=== PATIENT | male | born 1955 | race Caucasian/White ===

== ENCOUNTER 2018-06-05 11:48 | Emergency (ER) | payer MEDICAID ==
[~2018-06-05] VITALS: Ht 167.6 cm; Wt 96.8 kg
[~2018-06-05 11:48] MED LIST: ALBU8.5H8 IH; AMLO-511 PO; ASPI81 PO; ATOR20TA86 PO; BECL8.7A5 IH; HYDR25TA PO; IPRA4AER IH; IPRAHFA IH; LEDI1TAB PO; OMEP20 PO; SIME80 PO
[2018-06-05] MEDS ORDERED: FURO20 PO (11:57)
[2018-06-05] MEDS ORDERED: ROFL500T PO (11:57)
[2018-06-05] MEDS ORDERED: TIOT185 IH (11:57)
[2018-06-05] MEDS ORDERED: DSS100 PO (11:57)
[2018-06-05] MEDS ORDERED: LOSA50TA37 PO (11:57)
[2018-06-05 12:28] VITALS: BP 135/75
[2018-06-05] MEDS ORDERED: ACETAMINOPHEN/CODEINE 300-30 MG TABLET PO ONE (12:30)
== END 2018-06-05 14:28 | disposition home or self-care (01) ==
LOC: EMS 11:48
DX: M25.461 Effusion, right knee (principal); M25.561 Pain in right knee; J45.909 Unspecified asthma, uncomplicated; I10 Essential (primary) hypertension; Z87.891 Personal history of nicotine dependence
CPT/HCPCS: 99284

== ENCOUNTER 2018-12-28 11:23 | Emergency (ER) | payer MEDICAID ==
[~2018-12-28] VITALS: Ht 172.7 cm; Wt 98.2 kg
[~2018-12-28 11:23] MED LIST changes: -BECL8.7A5 IH; +DSS100 PO; +FURO20 PO; -HYDR25TA PO; -IPRA4AER IH; -IPRAHFA IH; -LEDI1TAB PO; +LOSA50TA64 PO; +ROFL500T PO; +TIOT185 IH
[2018-12-28] MEDS ORDERED: ROFL500T PO (11:34)
[2018-12-28 13:00] VITALS: BP 137/80
== END 2018-12-28 13:31 | disposition home or self-care (01) ==
LOC: EMS 11:26
DX: R05 Cough (principal); R09.81 Nasal congestion; R09.3 Abnormal sputum; J44.9 Chronic obstructive pulmonary disease, unspecified; I10 Essential (primary) hypertension; Z87.891 Personal history of nicotine dependence; Z79.899 Other long term (current) drug therapy; Z79.82 Long term (current) use of aspirin

== ENCOUNTER 2019-09-08 19:51 | Inpatient (IN) | payer MEDICAID ==
[~2019-09-08] VITALS: Ht 167.6 cm; Wt 97.0 kg
[~2019-09-08 19:51] MED LIST changes: -AMLO-511 PO; +AMLO5TAB9 PO
[2019-09-08] MEDS ORDERED: BUDE10.2 IH (20:11)
[2019-09-08] MEDS ORDERED: IPRATROPIUM BROMIDE 0.5 MG/2.5 ML NEB SOLUTION NEB ONE (20:15)
[2019-09-08] MEDS ORDERED: ALBUTEROL SULFATE 5 MG/ML 20 ML NEB SOLN [BULK] NEB ONE (20:15)
[2019-09-08] MEDS ORDERED: AZITHROMYCIN 500 MG/NS 250 ML IV ONE (20:45)
[2019-09-08] MEDS ORDERED: MethylPREDNISolone SOD SUCC 125 MG/2 ML VIAL IVP ONE (20:45)
[2019-09-08 21:32] LABS: BASOPHILS % (AUTO) 0.4 % (0.0-2.0); EOSINOPHILS % (AUTO) 7.5 % (1.0-6.0); HEMOGLOBIN 13.4 g/dL (13.5-17.5); LYMPHOCYTES # (AUTO) 2.4 K/uL (1.0-4.8); MEAN CORPUSCULAR VOLUME 88 fL (80-100); MONOCYTES % (AUTO) 11.8 % (2.0-9.0); NEUTROPHILS # (AUTO) 4.5 K/uL (1.8-7.7); NEUTROPHILS % (AUTO) 52.3 % (40.0-70.0); PLATELET COUNT (AUTO) 318 K/uL (150-450); RED CELL DISTRIBUTION WIDTH 14.7 % (11.5-14.5)
[2019-09-08 21:53] LABS: INFLUENZA TYPE A NEGATIVE FOR TYPE A (NEGATIVE); INFLUENZA TYPE B NEGATIVE FOR TYPE B (NEGATIVE)
[2019-09-08 22:06] LABS: ALANINE AMINOTRANSFERASE 39 U/L (12-78); ALBUMIN 3.8 g/dL (3.4-5.0); ALKALINE PHOSPHATASE 90 U/L (46-116); ASPARTATE AMINOTRANSFERASE 20 U/L (15-37); BILIRUBIN,TOTAL 0.5 mg/dL (0.1-1.0); CARBON DIOXIDE 32 mmol/L (22-29); CREATININE 0.96 mg/dL (0.60-1.30); GLOMERULAR FILTR. RATE CALC > 60 mL/min (>60); GLUCOSE,RANDOM 106 mg/dL (70-110); LIPASE 69 U/L (73-393); TOTAL PROTEIN, SERUM 7.7 g/dL (6.4-8.2); UREA NITROGEN, BLOOD 14 mg/dL (7-18)
[2019-09-08 22:11] LABS: ANION GAP 5 mmol/L (8-16); CHLORIDE 104 mmol/L (98-107); POTASSIUM 4.2 mmol/L (3.5-5.1); SODIUM SERUM 141 mmol/L (136-145)
[2019-09-08 22:20] LABS: LACTIC ACID 1.3 mmol/L (0.4-2.0)
[2019-09-08 22:22] LABS: B-TYPE NATRIURETIC PEPTIDE < 5 pg/mL (0-100)
[2019-09-08] MEDS ORDERED: ONDANSETRON HCL 4 MG/2 ML VIAL IVP PRN ×2 (22:45→23:45)
[2019-09-08] MEDS ORDERED: 0.9% SODIUM CHLORIDE 10 ML SYRINGE IVP PRN (22:45)
[2019-09-08] MEDS ORDERED: ACETAMINOPHEN 325 MG TABLET PO PRN ×2 (22:45→23:45)
[2019-09-08] MEDS ORDERED: IPRATROPIUM BROMIDE 0.5 MG/2.5 ML NEB SOLUTION NEB SCH (23:00)
[2019-09-08] MEDS ORDERED: ALBUTEROL SULFATE 2.5 MG/0.5 ML NEB SOLUTION NEB SCH (23:00)
[2019-09-08] MEDS ORDERED: IPRATROPIUM BROMIDE 0.5 MG/2.5 ML NEB SOLUTION NEB PRN (23:45)
[2019-09-08] MEDS ORDERED: ALBUTEROL SULFATE 2.5 MG/0.5 ML NEB SOLUTION NEB PRN (23:45)
[2019-09-08] MEDS ORDERED: OxyCODONE HCL/ACETAMINOPHEN 5-325 MG TABLET PO PRN (23:45)
[2019-09-08] MEDS ORDERED: BISACODYL 10 MG RECTAL RECTAL SUPPOSITORY PR PRN (23:45)
[2019-09-08] MEDS ORDERED: MAGNESIUM HYDROXIDE SUSPENSION 30 ML UDCUP PO PRN (23:45)
[2019-09-08] MEDS ORDERED: ZOLPIDEM TARTRATE 5 MG TABLET PO PRN (23:45)
[2019-09-08] MEDS ORDERED: MORPHINE SULFATE 2 MG/ML SYRINGE IVP PRN (23:45)
[2019-09-09 00:36] VITALS: BP 123/68
[2019-09-09] MEDS: MethylPREDNISolone SOD SUCC 125 MG/2 ML VIAL IVP SCH ×4 (00:43→17:00)
[2019-09-09] MEDS: HEPARIN SODIUM,PORCINE 5,000 UNITS/ML VIAL SQ SCH ×3 (00:43→16:58)
[2019-09-09] MEDS: IPRATROPIUM BROMIDE 0.5 MG/2.5 ML NEB SOLUTION NEB SCH ×6 (03:28→23:02)
[2019-09-09] MEDS: ALBUTEROL SULFATE 2.5 MG/0.5 ML NEB SOLUTION NEB SCH ×6 (03:28→23:02)
[2019-09-09 04:14] VITALS: BP 122/79
[2019-09-09 06:41] LABS: BASOPHILS % (AUTO) 0.1 % (0.0-2.0); EOSINOPHILS % (AUTO) 0 % (1.0-6.0); HEMATOCRIT 40.2 % (41-53); LYMPHOCYTES # (AUTO) 0.6 K/uL (1.0-4.8); LYMPHOCYTES % (AUTO) 7.5 % (22.0-44.0); MEAN CORPUSCULAR HGB CONC 32.2 G/dL (31.0-37.0); MEAN CORPUSCULAR VOLUME 87 fL (80-100); MONOCYTES # (AUTO) 0.1 K/uL (0.1-1.0); MONOCYTES % (AUTO) 0.7 % (2.0-9.0); NEUTROPHILS # (AUTO) 6.8 K/uL (1.8-7.7); PLATELET COUNT (AUTO) 293 K/uL (150-450); RED BLOOD CELL COUNT(AUTO) 4.63 MIL/uL (4.50-5.90); RED CELL DISTRIBUTION WIDTH 14.6 % (11.5-14.5)
[2019-09-09 06:48] LABS: NEUTROPHILS % (AUTO) 91.7 % (40.0-70.0)
[2019-09-09 06:58] LABS: ALANINE AMINOTRANSFERASE 30 U/L (12-78); ALKALINE PHOSPHATASE 79 U/L (46-116); ANION GAP 8 mmol/L (8-16); ASPARTATE AMINOTRANSFERASE 14 U/L (15-37); BILIRUBIN,TOTAL 0.4 mg/dL (0.1-1.0); CARBON DIOXIDE 29 mmol/L (22-29); CHLORIDE 105 mmol/L (98-107); CREATININE 1.12 mg/dL (0.60-1.30); GLOMERULAR FILTR. RATE CALC > 60 mL/min (>60); GLUCOSE,RANDOM 203 mg/dL (70-110); POTASSIUM 4.4 mmol/L (3.5-5.1); SODIUM SERUM 142 mmol/L (136-145); UREA NITROGEN, BLOOD 14 mg/dL (7-18)
[2019-09-09 06:59] LABS: ALBUMIN 3.6 g/dL (3.4-5.0); TOTAL PROTEIN, SERUM 7.4 g/dL (6.4-8.2)
[2019-09-09 07:28] VITALS: BP 131/78
[2019-09-09] MEDS: LOSARTAN POTASSIUM 50 MG TABLET PO SCH (08:38)
[2019-09-09] MEDS: OMEPRAZOLE 20 MG CAPSULE PO SCH (08:38)
[2019-09-09] MEDS: AmLODIPine BESYLATE 5 MG TABLET PO SCH (08:38)
[2019-09-09] MEDS: FUROSEMIDE 20 MG/2 ML VIAL IVP SCH ×2 (08:38→21:29)
[2019-09-09] MEDS: ASPIRIN 81 MG CHEWABLE TABLET PO SCH (08:38)
[2019-09-09] MEDS: DOCUSATE SODIUM 100 MG CAPSULE PO SCH ×2 (08:39→21:30)
[2019-09-09] MEDS ORDERED: PANTOPRAZOLE SODIUM 40 MG DR TABLET PO SCH (09:00)
[2019-09-09] MEDS ORDERED: DOCUSATE SODIUM 100 MG CAPSULE PO SCH (09:00)
[2019-09-09 11:23] VITALS: BP 117/65
[2019-09-09 12:27] LABS: APPEARANCE,URINE CLOUDY (CLEAR); BILIRUBIN,URINE NEGATIVE (NEGATIVE); GLUCOSE, URINE (UA) 100 mg/dL (NEGATIVE); KETONES,URINE NEGATIVE (NEGATIVE); LEUKOCYTE ESTERASE ,URINE NEGATIVE (NEGATIVE); NITRATE,URINE NEGATIVE (NEGATIVE); OCCULT BLOOD,URINE NEGATIVE (NEGATIVE); PROTEIN,URINE NEGATIVE (NEGATIVE); UROBILINOGEN,URINE 0.2 mg/dL (<=1.0)
[2019-09-09 12:41] LABS: BACTERIA,URINE None Seen /HPF (None Seen); MUCUS,URINE Few LPF (None Seen); RBC,URINE None Seen /HPF (0-2); SQUAMOUS EPITHELIAL CELL,UR Few /LPF (None Seen); WBC,URINE 0-2 /HPF (0-5)
[2019-09-09 15:21] VITALS: BP 102/61
[2019-09-09 20:27] VITALS: BP 126/66
[2019-09-09] MEDS: ATORVASTATIN CALCIUM 20 MG TABLET PO SCH (21:30)
[2019-09-10] VITALS (7 sets, daily range): BP systolic 100–127; BP diastolic 62–74
[2019-09-10] MEDS: MethylPREDNISolone SOD SUCC 125 MG/2 ML VIAL IVP SCH ×4 (00:50→18:25)
[2019-09-10] MEDS: HEPARIN SODIUM,PORCINE 5,000 UNITS/ML VIAL SQ SCH ×3 (00:51→15:25)
[2019-09-10] MEDS: ALBUTEROL SULFATE 2.5 MG/0.5 ML NEB SOLUTION NEB SCH ×6 (03:02→23:08)
[2019-09-10] MEDS: IPRATROPIUM BROMIDE 0.5 MG/2.5 ML NEB SOLUTION NEB SCH ×6 (03:02→23:08)
[2019-09-10 07:27] LABS: BASOPHILS % (AUTO) 0.1 % (0.0-2.0); EOSINOPHILS % (AUTO) 0 % (1.0-6.0); HEMATOCRIT 39.4 % (41-53); HEMOGLOBIN 12.8 g/dL (13.5-17.5); LYMPHOCYTES # (AUTO) 0.9 K/uL (1.0-4.8); LYMPHOCYTES % (AUTO) 6.5 % (22.0-44.0); MEAN CORPUSCULAR HGB CONC 32.4 G/dL (31.0-37.0); MEAN CORPUSCULAR VOLUME 86 fL (80-100); MONOCYTES # (AUTO) 0.5 K/uL (0.1-1.0); MONOCYTES % (AUTO) 3.2 % (2.0-9.0); NEUTROPHILS # (AUTO) 13.1 K/uL (1.8-7.7); PLATELET COUNT (AUTO) 328 K/uL (150-450); RED BLOOD CELL COUNT(AUTO) 4.56 MIL/uL (4.50-5.90); RED CELL DISTRIBUTION WIDTH 14.5 % (11.5-14.5)
[2019-09-10 07:30] LABS: NEUTROPHILS % (AUTO) 90.2 % (40.0-70.0)
[2019-09-10 08:06] LABS: ALANINE AMINOTRANSFERASE 26 U/L (12-78); ALBUMIN 3.7 g/dL (3.4-5.0); ALKALINE PHOSPHATASE 69 U/L (46-116); ANION GAP 10 mmol/L (8-16); ASPARTATE AMINOTRANSFERASE 12 U/L (15-37); BILIRUBIN,TOTAL 0.4 mg/dL (0.1-1.0); CALCIUM, TOTAL 9.2 mg/dL (8.8-10.5); CARBON DIOXIDE 28 mmol/L (22-29); CHLORIDE 103 mmol/L (98-107); CREATININE 1.12 mg/dL (0.60-1.30); GLOMERULAR FILTR. RATE CALC > 60 mL/min (>60); GLUCOSE,RANDOM 153 mg/dL (70-110); POTASSIUM 3.9 mmol/L (3.5-5.1); SODIUM SERUM 141 mmol/L (136-145); TOTAL PROTEIN, SERUM 7.2 g/dL (6.4-8.2); UREA NITROGEN, BLOOD 25 mg/dL (7-18)
[2019-09-10] MEDS: ASPIRIN 81 MG CHEWABLE TABLET PO SCH (09:49)
[2019-09-10] MEDS: DOCUSATE SODIUM 100 MG CAPSULE PO SCH ×2 (09:50→20:02)
[2019-09-10] MEDS: OMEPRAZOLE 20 MG CAPSULE PO SCH (09:52)
[2019-09-10] MEDS: AmLODIPine BESYLATE 5 MG TABLET PO SCH (09:52)
[2019-09-10] MEDS: FUROSEMIDE 20 MG/2 ML VIAL IVP SCH ×2 (09:53→20:02)
[2019-09-10] MEDS: LOSARTAN POTASSIUM 50 MG TABLET PO SCH (09:53)
[2019-09-10] MEDS: ATORVASTATIN CALCIUM 20 MG TABLET PO SCH (20:02)
[2019-09-11] MEDS: MethylPREDNISolone SOD SUCC 125 MG/2 ML VIAL IVP SCH ×3 (00:08→11:06)
[2019-09-11] MEDS: ALBUTEROL SULFATE 2.5 MG/0.5 ML NEB SOLUTION NEB SCH ×4 (02:37→15:40)
[2019-09-11] MEDS: IPRATROPIUM BROMIDE 0.5 MG/2.5 ML NEB SOLUTION NEB SCH ×4 (02:37→15:40)
[2019-09-11 05:00] VITALS: BP 119/69
[2019-09-11 06:53] LABS: BASOPHILS % (AUTO) 0.2 % (0.0-2.0); EOSINOPHILS % (AUTO) 0.3 % (1.0-6.0); HEMATOCRIT 39.9 % (41-53); HEMOGLOBIN 12.8 g/dL (13.5-17.5); LYMPHOCYTES # (AUTO) 0.7 K/uL (1.0-4.8); LYMPHOCYTES % (AUTO) 5.4 % (22.0-44.0); MEAN CORPUSCULAR HEMOGLOBIN 28.1 pg (26.0-34.0); MEAN CORPUSCULAR HGB CONC 32.1 G/dL (31.0-37.0); MEAN CORPUSCULAR VOLUME 87 fL (80-100); MONOCYTES # (AUTO) 0.3 K/uL (0.1-1.0); MONOCYTES % (AUTO) 2.6 % (2.0-9.0); NEUTROPHILS # (AUTO) 12.5 K/uL (1.8-7.7); PLATELET COUNT (AUTO) 296 K/uL (150-450); RED BLOOD CELL COUNT(AUTO) 4.56 MIL/uL (4.50-5.90); RED CELL DISTRIBUTION WIDTH 14.6 % (11.5-14.5)
[2019-09-11 07:03] LABS: NEUTROPHILS % (AUTO) 91.5 % (40.0-70.0)
[2019-09-11 07:46] LABS: ALANINE AMINOTRANSFERASE 30 U/L (12-78); ALBUMIN 3.5 g/dL (3.4-5.0); ALKALINE PHOSPHATASE 76 U/L (46-116); ANION GAP 13 mmol/L (8-16); ASPARTATE AMINOTRANSFERASE 16 U/L (15-37); BILIRUBIN,TOTAL 0.4 mg/dL (0.1-1.0); CARBON DIOXIDE 26 mmol/L (22-29); CHLORIDE 104 mmol/L (98-107); GLOMERULAR FILTR. RATE CALC > 60 mL/min (>60); GLUCOSE,RANDOM 201 mg/dL (70-110); POTASSIUM 4.1 mmol/L (3.5-5.1); SODIUM SERUM 143 mmol/L (136-145); TOTAL PROTEIN, SERUM 6.8 g/dL (6.4-8.2); UREA NITROGEN, BLOOD 35 mg/dL (7-18)
[2019-09-11 08:24] VITALS: BP 106/62
[2019-09-11] MEDS: OMEPRAZOLE 20 MG CAPSULE PO SCH (08:45)
[2019-09-11] MEDS: DOCUSATE SODIUM 100 MG CAPSULE PO SCH (08:45)
[2019-09-11] MEDS: FUROSEMIDE 20 MG/2 ML VIAL IVP SCH (08:45)
[2019-09-11] MEDS: HEPARIN SODIUM,PORCINE 5,000 UNITS/ML VIAL SQ SCH ×3 (08:45→16:00)
[2019-09-11] MEDS: LOSARTAN POTASSIUM 50 MG TABLET PO SCH (08:45)
[2019-09-11] MEDS: AmLODIPine BESYLATE 5 MG TABLET PO SCH (08:46)
[2019-09-11] MEDS: ASPIRIN 81 MG CHEWABLE TABLET PO SCH (08:46)
[2019-09-11 11:45] VITALS: BP 117/66
[2019-09-11 15:06] VITALS: BP 115/62
[2019-09-11] MEDS ORDERED: PredniSONE 20 MG TABLET PO ONE (15:30)
== END 2019-09-11 17:25 | disposition home or self-care (01) | DRG 140 ==
LOC: EMS 19:52 → 5S 23:30
PROVIDERS: ADMIT Hospitalist; ATTEND Hospitalist
DX: J44.1 Chronic obstructive pulmonary disease with (acute) exacerbation (principal); E78.5 Hyperlipidemia, unspecified; I10 Essential (primary) hypertension; K21.9 Gastro-esophageal reflux disease without esophagitis; Z87.891 Personal history of nicotine dependence
CPT/HCPCS: 83605; 87040; 87804; 93005; 94640; 94644; G0378; J0456; J1644; J1940; J2930

== ENCOUNTER 2019-09-29 15:38 | Emergency (ER) | payer MEDICAID ==
[~2019-09-29] VITALS: Ht 167.6 cm; Wt 97.3 kg
[~2019-09-29 15:38] MED LIST changes: +BUDE10.2 IH; -SIME80 PO
[2019-09-29] MEDS ORDERED: BUDE10.2 IH (15:52)
[2019-09-29] MEDS ORDERED: SIME80 PO (15:52)
[2019-09-29] MEDS ORDERED: AUD NEB (15:52)
[2019-09-29] MEDS ORDERED: AZIT250T9 PO (15:57)
[2019-09-29] MEDS ORDERED: DEXT15LI38 PO (15:57)
[2019-09-29] MEDS ORDERED: ALBUTEROL SULFATE 2.5 MG/0.5 ML NEB SOLUTION NEB ONE (16:00)
[2019-09-29] MEDS ORDERED: IPRATROPIUM BROMIDE 0.5 MG/2.5 ML NEB SOLUTION NEB ONE (16:00)
[2019-09-29 17:21] LABS: BASOPHILS % (AUTO) 0.8 % (0.0-2.0); EOSINOPHILS % (AUTO) 5.4 % (1.0-6.0); HEMATOCRIT 39.2 % (41-53); HEMOGLOBIN 12.6 g/dL (13.5-17.5); LYMPHOCYTES # (AUTO) 1.4 K/uL (1.0-4.8); LYMPHOCYTES % (AUTO) 14.9 % (22.0-44.0); MEAN CORPUSCULAR HEMOGLOBIN 27.8 pg (26.0-34.0); MEAN CORPUSCULAR HGB CONC 32.1 G/dL (31.0-37.0); MEAN CORPUSCULAR VOLUME 86 fL (80-100); MONOCYTES # (AUTO) 0.8 K/uL (0.1-1.0); MONOCYTES % (AUTO) 8.3 % (2.0-9.0); NEUTROPHILS # (AUTO) 6.6 K/uL (1.8-7.7); NEUTROPHILS % (AUTO) 70.6 % (40.0-70.0); PLATELET COUNT (AUTO) 213 K/uL (150-450); RED BLOOD CELL COUNT(AUTO) 4.54 MIL/uL (4.50-5.90); RED CELL DISTRIBUTION WIDTH 14.6 % (11.5-14.5)
[2019-09-29 17:40] LABS: B-TYPE NATRIURETIC PEPTIDE 6 pg/mL (0-100)
[2019-09-29] MEDS ORDERED: PredniSONE 20 MG TABLET PO ONE (17:45)
[2019-09-29 17:46] LABS: ANION GAP 11 mmol/L (8-16); CARBON DIOXIDE 27 mmol/L (22-29); CHLORIDE 105 mmol/L (98-107); CREATININE 0.86 mg/dL (0.60-1.30); GLOMERULAR FILTR. RATE CALC > 60 mL/min (>60); GLUCOSE,RANDOM 112 mg/dL (70-110); POTASSIUM 3.5 mmol/L (3.5-5.1); SODIUM SERUM 143 mmol/L (136-145); UREA NITROGEN, BLOOD 11 mg/dL (7-18)
[2019-09-29 17:53] LABS: ALANINE AMINOTRANSFERASE 31 U/L (12-78); ALBUMIN 3.2 g/dL (3.4-5.0); ALKALINE PHOSPHATASE 78 U/L (46-116); ASPARTATE AMINOTRANSFERASE 14 U/L (15-37); BILIRUBIN,TOTAL 0.3 mg/dL (0.1-1.0)
[2019-09-29] MEDS ORDERED: DOXYCYCLINE HYCLATE 100 MG CAPSULE PO ONE (19:15)
[2019-09-29 19:46] VITALS: BP 138/76
== END 2019-09-29 19:52 | disposition home or self-care (01) ==
LOC: EMS 19:13
DX: J44.9 Chronic obstructive pulmonary disease, unspecified (principal); J18.9 Pneumonia, unspecified organism; M79.10 Myalgia, unspecified site; Z79.82 Long term (current) use of aspirin; Z79.899 Other long term (current) drug therapy
CPT/HCPCS: 36415; 71046; 80053; 83880; 84484; 85025; 93005; 94640; 99284; J7512

== ENCOUNTER 2020-01-01 14:50 | Inpatient (IN) | payer MEDICAID ==
[~2020-01-01] VITALS: Ht 165.1 cm; Wt 97.9 kg
[~2020-01-01 14:50] MED LIST changes: +ASPI-728 PO; -ASPI81 PO; +AUD NEB; +AZIT250T9 PO; +DEXT15LI38 PO; -DSS100 PO; +LOSA-88 PO; -LOSA50TA64 PO; +SIME80 PO; -TIOT185 IH
[2020-01-01] MEDS ORDERED: LEVALBUTEROL HCL 1.25 MG/0.5 ML NEB SOLUTION NEB ONE (15:00)
[2020-01-01] MEDS ORDERED: IPRATROPIUM BROMIDE 0.5 MG/2.5 ML NEB SOLUTION NEB ONE (15:00)
[2020-01-01 15:38] LABS: BASOPHILS % (AUTO) 0.7 % (0.0-2.0); HEMOGLOBIN 13.3 g/dL (13.5-17.5); MONOCYTES # (AUTO) 0.9 K/uL (0.1-1.0)
[2020-01-01 15:46] LABS: LYMPHOCYTES # (AUTO) 1.3 K/uL (1.0-4.8); LYMPHOCYTES % (AUTO) 12.7 % (22.0-44.0); MEAN CORPUSCULAR HEMOGLOBIN 27.8 pg (26.0-34.0); MEAN CORPUSCULAR HGB CONC 32.4 G/dL (31.0-37.0); MEAN CORPUSCULAR VOLUME 86 fL (80-100); MONOCYTES % (AUTO) 8.9 % (2.0-9.0); NEUTROPHILS # (AUTO) 7.8 K/uL (1.8-7.7); NEUTROPHILS % (AUTO) 75.7 % (40.0-70.0); PLATELET COUNT (AUTO) 288 K/uL (150-450); RED BLOOD CELL COUNT(AUTO) 4.78 MIL/uL (4.50-5.90); RED CELL DISTRIBUTION WIDTH 14.6 % (11.5-14.5)
[2020-01-01 15:47] LABS: ANION GAP 7 mmol/L (8-16); CALCIUM, TOTAL 9.4 mg/dL (8.8-10.5); CARBON DIOXIDE 31 mmol/L (22-29); CHLORIDE 104 mmol/L (98-107); CREATININE 0.71 mg/dL (0.60-1.30); GLOMERULAR FILTR. RATE CALC > 60 mL/min (>60); GLUCOSE,RANDOM 93 mg/dL (70-110); POTASSIUM 3.6 mmol/L (3.5-5.1); SODIUM SERUM 142 mmol/L (136-145); UREA NITROGEN, BLOOD 10 mg/dL (7-18)
[2020-01-01 16:13] LABS: ALANINE AMINOTRANSFERASE 26 U/L (12-78); ALKALINE PHOSPHATASE 76 U/L (46-116); ASPARTATE AMINOTRANSFERASE 12 U/L (15-37); BILIRUBIN,TOTAL 0.7 mg/dL (0.1-1.0); CREATINE KINASE, TOTAL ONLY 162 U/L (39-308); TOTAL PROTEIN, SERUM 7.7 g/dL (6.4-8.2)
[2020-01-01 16:32] LABS: B-TYPE NATRIURETIC PEPTIDE 6 pg/mL (0-100)
[2020-01-01] MEDS ORDERED: MethylPREDNISolone SOD SUCC 125 MG/2 ML VIAL IVP ONE (16:45)
[2020-01-01] MEDS ORDERED: LEVOFLOXACIN 500 MG/D5% WATER 100 ML IV ONE (16:45)
[2020-01-01 16:57] LABS: APPEARANCE,URINE CLEAR (CLEAR); BILIRUBIN,URINE NEGATIVE (NEGATIVE); GLUCOSE, URINE (UA) NEGATIVE (NEGATIVE); KETONES,URINE NEGATIVE (NEGATIVE); LEUKOCYTE ESTERASE ,URINE NEGATIVE (NEGATIVE); NITRATE,URINE NEGATIVE (NEGATIVE); OCCULT BLOOD,URINE NEGATIVE (NEGATIVE); PROTEIN,URINE NEGATIVE (NEGATIVE)
[2020-01-01] MEDS ORDERED: LEVOFLOXACIN 500 MG TABLET PO ONE (18:00)
[2020-01-01] MEDS ORDERED: MethylPREDNISolone SOD SUCC 125 MG/2 ML VIAL IM ONE (18:00)
[2020-01-01] MEDS ORDERED: 0.9% SODIUM CHLORIDE 10 ML SYRINGE IVP PRN (18:15)
[2020-01-01] MEDS ORDERED: ACETAMINOPHEN 325 MG TABLET PO PRN ×2 (18:15→22:30)
[2020-01-01 19:42] LABS: INFLUENZA TYPE A NEGATIVE FOR TYPE A (NEGATIVE); INFLUENZA TYPE B NEGATIVE FOR TYPE B (NEGATIVE)
[2020-01-01] MEDS ORDERED: IPRATROPIUM BROMIDE 0.5 MG/2.5 ML NEB SOLUTION NEB SCH (20:00)
[2020-01-01] MEDS ORDERED: ALBUTEROL SULFATE 2.5 MG/0.5 ML NEB SOLUTION NEB SCH (20:00)
[2020-01-01] MEDS ORDERED: BISACODYL 10 MG RECTAL RECTAL SUPPOSITORY PR PRN (22:30)
[2020-01-01] MEDS ORDERED: MAGNESIUM HYDROXIDE SUSPENSION 30 ML UDCUP PO PRN (22:30)
[2020-01-01] MEDS ORDERED: ZOLPIDEM TARTRATE 5 MG TABLET PO PRN (22:30)
[2020-01-01] MEDS ORDERED: ONDANSETRON HCL 4 MG/2 ML VIAL IVP PRN (22:30)
[2020-01-01] MEDS ORDERED: ALBUTEROL SULFATE 2.5 MG/0.5 ML NEB SOLUTION NEB PRN (22:30)
[2020-01-01] MEDS ORDERED: HYDROCODONE/ACETAMINOPHEN 5-325 MG TABLET PO PRN (22:30)
[2020-01-01] MEDS ORDERED: MORPHINE SULFATE 2 MG/ML SYRINGE IVP PRN (22:30)
[2020-01-01] MEDS ORDERED: IPRATROPIUM BROMIDE 0.5 MG/2.5 ML NEB SOLUTION NEB PRN (22:30)
[2020-01-01 23:31] VITALS: BP 124/67
[2020-01-01] MEDS ORDERED: SODIUM CHLORIDE 0.9% 250 ML IV ONE (23:35)
[2020-01-01] MEDS: MethylPREDNISolone SOD SUCC 125 MG/2 ML VIAL IVP SCH (23:38)
[2020-01-01] MEDS: HEPARIN SODIUM,PORCINE 5,000 UNITS/ML VIAL SQ SCH (23:38)
[2020-01-02] MEDS: CefTRIAXone 1 GM/DEXTROSE 50 ML IV SCH ×2 (01:17→23:54)
[2020-01-02] MEDS: IPRATROPIUM BROMIDE 0.5 MG/2.5 ML NEB SOLUTION NEB SCH ×4 (02:00→20:41)
[2020-01-02] MEDS: ALBUTEROL SULFATE 2.5 MG/0.5 ML NEB SOLUTION NEB SCH ×4 (02:00→20:41)
[2020-01-02] MEDS: AZITHROMYCIN 500 MG/NS 250 ML IV SCH (02:37)
[2020-01-02 04:30] VITALS: BP 132/77
[2020-01-02] MEDS: MethylPREDNISolone SOD SUCC 125 MG/2 ML VIAL IVP SCH (06:08)
[2020-01-02 07:10] LABS: BASOPHILS % (AUTO) 0.2 % (0.0-2.0); EOSINOPHILS % (AUTO) 0 % (1.0-6.0); HEMATOCRIT 37.3 % (41-53); HEMOGLOBIN 12.3 g/dL (13.5-17.5); LYMPHOCYTES # (AUTO) 0.7 K/uL (1.0-4.8); LYMPHOCYTES % (AUTO) 8.4 % (22.0-44.0); MEAN CORPUSCULAR HEMOGLOBIN 28.5 pg (26.0-34.0); MEAN CORPUSCULAR VOLUME 86 fL (80-100); MONOCYTES # (AUTO) 0.1 K/uL (0.1-1.0); MONOCYTES % (AUTO) 0.7 % (2.0-9.0); NEUTROPHILS # (AUTO) 8.1 K/uL (1.8-7.7); PLATELET COUNT (AUTO) 277 K/uL (150-450); RED BLOOD CELL COUNT(AUTO) 4.33 MIL/uL (4.50-5.90); RED CELL DISTRIBUTION WIDTH 14.5 % (11.5-14.5)
[2020-01-02 07:11] LABS: NEUTROPHILS % (AUTO) 90.7 % (40.0-70.0)
[2020-01-02 07:34] LABS: ALANINE AMINOTRANSFERASE 22 U/L (12-78); ALBUMIN 3.4 g/dL (3.4-5.0); ALKALINE PHOSPHATASE 64 U/L (46-116); ANION GAP 10 mmol/L (8-16); ASPARTATE AMINOTRANSFERASE 14 U/L (15-37); BILIRUBIN,TOTAL 0.5 mg/dL (0.1-1.0); CARBON DIOXIDE 26 mmol/L (22-29); CHLORIDE 105 mmol/L (98-107); CREATININE 0.87 mg/dL (0.60-1.30); GLOMERULAR FILTR. RATE CALC > 60 mL/min (>60); GLUCOSE,RANDOM 149 mg/dL (70-110); POTASSIUM 4.2 mmol/L (3.5-5.1); SODIUM SERUM 141 mmol/L (136-145); TOTAL PROTEIN, SERUM 7.1 g/dL (6.4-8.2); UREA NITROGEN, BLOOD 14 mg/dL (7-18)
[2020-01-02] MEDS: HEPARIN SODIUM,PORCINE 5,000 UNITS/ML VIAL SQ SCH ×3 (07:46→23:54)
[2020-01-02 07:47] VITALS: BP 118/71
[2020-01-02] MEDS: DOCUSATE SODIUM 100 MG CAPSULE PO SCH ×2 (08:18→20:50)
[2020-01-02] MEDS: ASPIRIN 81 MG CHEWABLE TABLET PO SCH (08:18)
[2020-01-02] MEDS: ROFLUMILAST 500 MCG TABLET PO SCH (08:18)
[2020-01-02] MEDS: FUROSEMIDE 20 MG TABLET PO SCH ×2 (08:18→20:50)
[2020-01-02] MEDS: AmLODIPine BESYLATE 5 MG TABLET PO SCH (08:19)
[2020-01-02] MEDS: PANTOPRAZOLE SODIUM 40 MG DR TABLET PO SCH (08:19)
[2020-01-02] MEDS: GuaiFENesin SR 600 MG ER TABLET PO SCH ×2 (08:19→20:50)
[2020-01-02] MEDS: SIMETHICONE 80 MG CHEWABLE TABLET PO SCH ×4 (08:19→20:51)
[2020-01-02] MEDS: BUDESONIDE 0.5 MG/2 ML NEB SOLUTION NEB SCH ×2 (08:59→20:42)
[2020-01-02] MEDS ORDERED: BENZONATATE 100 MG CAPSULE PO SCH (09:00)
[2020-01-02] MEDS: MethylPREDNISolone SOD SUCC 40 MG/ML VIAL IVP SCH ×3 (11:14→23:46)
[2020-01-02 11:40] VITALS: BP 119/75
[2020-01-02 16:18] VITALS: BP 116/73
[2020-01-02] MEDS: BENZONATATE 100 MG CAPSULE PO SCH ×2 (16:31→20:50)
[2020-01-02 20:05] VITALS: BP 146/70
[2020-01-02] MEDS: ATORVASTATIN CALCIUM 20 MG TABLET PO SCH (20:50)
[2020-01-03 00:26] VITALS: BP 126/44
[2020-01-03] MEDS: IPRATROPIUM BROMIDE 0.5 MG/2.5 ML NEB SOLUTION NEB SCH ×4 (01:46→20:36)
[2020-01-03] MEDS: ALBUTEROL SULFATE 2.5 MG/0.5 ML NEB SOLUTION NEB SCH ×4 (01:47→20:36)
[2020-01-03] MEDS: AZITHROMYCIN 500 MG/NS 250 ML IV SCH (02:07)
[2020-01-03 04:39] VITALS: BP 114/63
[2020-01-03] MEDS: MethylPREDNISolone SOD SUCC 40 MG/ML VIAL IVP SCH ×3 (05:39→17:36)
[2020-01-03 07:54] VITALS: BP 124/78
[2020-01-03] MEDS: HEPARIN SODIUM,PORCINE 5,000 UNITS/ML VIAL SQ SCH ×2 (08:03→16:12)
[2020-01-03] MEDS: DOCUSATE SODIUM 100 MG CAPSULE PO SCH ×2 (08:04→19:53)
[2020-01-03] MEDS: ASPIRIN 81 MG CHEWABLE TABLET PO SCH (08:04)
[2020-01-03] MEDS: ROFLUMILAST 500 MCG TABLET PO SCH (08:05)
[2020-01-03] MEDS: FUROSEMIDE 20 MG TABLET PO SCH ×2 (08:06→19:54)
[2020-01-03] MEDS: AmLODIPine BESYLATE 5 MG TABLET PO SCH (08:06)
[2020-01-03] MEDS: SIMETHICONE 80 MG CHEWABLE TABLET PO SCH ×4 (08:06→19:54)
[2020-01-03] MEDS: GuaiFENesin SR 600 MG ER TABLET PO SCH ×2 (08:06→19:54)
[2020-01-03] MEDS: PANTOPRAZOLE SODIUM 40 MG DR TABLET PO SCH (08:06)
[2020-01-03] MEDS: BENZONATATE 100 MG CAPSULE PO SCH ×3 (08:07→19:54)
[2020-01-03] MEDS: BUDESONIDE 0.5 MG/2 ML NEB SOLUTION NEB SCH ×2 (08:32→20:38)
[2020-01-03 11:15] VITALS: BP 133/78
[2020-01-03 15:50] VITALS: BP 126/72
[2020-01-03 19:25] VITALS: BP 118/68
[2020-01-03] MEDS: ATORVASTATIN CALCIUM 20 MG TABLET PO SCH (19:54)
[2020-01-04 00:01] VITALS: BP 121/62
[2020-01-04] MEDS: ALBUTEROL SULFATE 2.5 MG/0.5 ML NEB SOLUTION NEB SCH ×3 (01:22→13:25)
[2020-01-04] MEDS: IPRATROPIUM BROMIDE 0.5 MG/2.5 ML NEB SOLUTION NEB SCH ×3 (01:22→13:25)
[2020-01-04] MEDS: MethylPREDNISolone SOD SUCC 40 MG/ML VIAL IVP SCH ×3 (02:47→12:50)
[2020-01-04] MEDS: CefTRIAXone 1 GM/DEXTROSE 50 ML IV SCH (02:47)
[2020-01-04] MEDS: HEPARIN SODIUM,PORCINE 5,000 UNITS/ML VIAL SQ SCH ×2 (02:47→08:00)
[2020-01-04 03:38] VITALS: BP 118/79
[2020-01-04] MEDS: AZITHROMYCIN 500 MG/NS 250 ML IV SCH (04:17)
[2020-01-04 07:20] VITALS: BP 138/79
[2020-01-04 07:22] LABS: BASOPHILS % (AUTO) 0.2 % (0.0-2.0); EOSINOPHILS % (AUTO) 0 % (1.0-6.0); HEMATOCRIT 36.4 % (41-53); HEMOGLOBIN 11.8 g/dL (13.5-17.5); LYMPHOCYTES # (AUTO) 0.6 K/uL (1.0-4.8); LYMPHOCYTES % (AUTO) 5.9 % (22.0-44.0); MEAN CORPUSCULAR HGB CONC 32.5 G/dL (31.0-37.0); MEAN CORPUSCULAR VOLUME 86 fL (80-100); MONOCYTES # (AUTO) 0.6 K/uL (0.1-1.0); MONOCYTES % (AUTO) 5.9 % (2.0-9.0); NEUTROPHILS # (AUTO) 9.6 K/uL (1.8-7.7); PLATELET COUNT (AUTO) 319 K/uL (150-450); RED BLOOD CELL COUNT(AUTO) 4.22 MIL/uL (4.50-5.90); RED CELL DISTRIBUTION WIDTH 14.5 % (11.5-14.5)
[2020-01-04 07:56] LABS: ANION GAP 9 mmol/L (8-16); CALCIUM, TOTAL 8.8 mg/dL (8.8-10.5); CARBON DIOXIDE 28 mmol/L (22-29); CHLORIDE 109 mmol/L (98-107); CREATININE 0.94 mg/dL (0.60-1.30); GLOMERULAR FILTR. RATE CALC > 60 mL/min (>60); GLUCOSE,RANDOM 136 mg/dL (70-110); POTASSIUM 3.7 mmol/L (3.5-5.1); SODIUM SERUM 146 mmol/L (136-145); UREA NITROGEN, BLOOD 24 mg/dL (7-18)
[2020-01-04] MEDS: BUDESONIDE 0.5 MG/2 ML NEB SOLUTION NEB SCH (08:02)
[2020-01-04] MEDS: DOCUSATE SODIUM 100 MG CAPSULE PO SCH (08:38)
[2020-01-04] MEDS: PANTOPRAZOLE SODIUM 40 MG DR TABLET PO SCH (08:38)
[2020-01-04] MEDS: AmLODIPine BESYLATE 5 MG TABLET PO SCH (08:38)
[2020-01-04] MEDS: BENZONATATE 100 MG CAPSULE PO SCH (08:38)
[2020-01-04] MEDS: GuaiFENesin SR 600 MG ER TABLET PO SCH (08:38)
[2020-01-04] MEDS: FUROSEMIDE 20 MG TABLET PO SCH (08:38)
[2020-01-04] MEDS: ROFLUMILAST 500 MCG TABLET PO SCH (08:38)
[2020-01-04] MEDS: SIMETHICONE 80 MG CHEWABLE TABLET PO SCH ×2 (08:38→13:00)
[2020-01-04] MEDS: ASPIRIN 81 MG CHEWABLE TABLET PO SCH (08:38)
[2020-01-04 11:05] VITALS: BP 127/70
[2020-01-04] MEDS ORDERED: CEPH-582 PO (13:11)
[2020-01-04] MEDS ORDERED: PRED5 PO (13:13)
== END 2020-01-04 15:29 | disposition home or self-care (01) | DRG 140 ==
LOC: EMS 14:51 → 5N 18:38
PROVIDERS: ADMIT Internal Medicine; ATTEND Internal Medicine
DX: J44.1 Chronic obstructive pulmonary disease with (acute) exacerbation (principal); I11.0 Hypertensive heart disease with heart failure; I50.9 Heart failure, unspecified; E78.5 Hyperlipidemia, unspecified; K21.9 Gastro-esophageal reflux disease without esophagitis; K59.00 Constipation, unspecified; Z87.01 Personal history of pneumonia (recurrent); Z79.899 Other long term (current) drug therapy; Z79.82 Long term (current) use of aspirin
CPT/HCPCS: 71250; 72192; 74150; 83605; 85379; 87040; 87804; 93005; 94640; J0456; J0696; J1644; J2920; J2930; J7050

== ENCOUNTER 2022-08-14 11:19 | Emergency (ER) | payer MEDICARE, MEDICAID ==
[~2022-08-14] VITALS: Ht 167.6 cm; Wt 101.4 kg
[~2022-08-14 11:19] MED LIST changes: +AMLO-257 PO; -AMLO5TAB9 PO; +ASPI-1450 PO; -ASPI-728 PO; -AZIT250T9 PO; +CEPH-582 PO; -LOSA-88 PO; +PRED5TAB2 PO; -SIME80 PO; +SIME80TA82 PO
[2022-08-14] MEDS ORDERED: METF-1211 PO (11:33)
[2022-08-14] MEDS ORDERED: NAPR-1025 PO (11:33)
[2022-08-14] MEDS ORDERED: OMEP20CA12 PO (11:33)
[2022-08-14] MEDS ORDERED: MONT-40 PO (11:33)
[2022-08-14] MEDS ORDERED: HYDR25TA PO (11:33)
[2022-08-14] MEDS ORDERED: ASPI-1444 PO (11:33)
[2022-08-14] MEDS ORDERED: AMLO5TAB66 PO (11:33)
[2022-08-14] MEDS ORDERED: IPRA3AMP24 NEB (11:33)
[2022-08-14] MEDS ORDERED: ATOR20TA65 PO (11:33)
[2022-08-14 12:28] LABS: BASOPHILS % (AUTO) 0.3 % (0.0-2.0); EOSINOPHILS % (AUTO) 2.3 % (1.0-6.0); HEMATOCRIT 39.3 % (41-53); HEMOGLOBIN 12.1 g/dL (13.5-17.5); LYMPHOCYTES # (AUTO) 1.4 K/uL (1.0-4.8); LYMPHOCYTES % (AUTO) 22.6 % (22.0-44.0); MEAN CORPUSCULAR HEMOGLOBIN 25.9 pg (26.0-34.0); MEAN CORPUSCULAR HGB CONC 30.9 G/dL (31.0-37.0); MEAN CORPUSCULAR VOLUME 84 fL (80-100); MONOCYTES # (AUTO) 0.7 K/uL (0.1-1.0); NEUTROPHILS # (AUTO) 3.8 K/uL (1.8-7.7); NEUTROPHILS % (AUTO) 63.8 % (40.0-70.0); PLATELET COUNT (AUTO) 274 K/uL (150-450); RED CELL DISTRIBUTION WIDTH 17.3 % (11.5-14.5)
[2022-08-14 12:32] LABS: APPEARANCE,URINE HAZY (CLEAR); BILIRUBIN,URINE NEGATIVE (NEGATIVE); GLUCOSE, URINE (UA) NEGATIVE (NEGATIVE); KETONES,URINE NEGATIVE (NEGATIVE); LEUKOCYTE ESTERASE ,URINE LARGE (NEGATIVE); NITRATE,URINE POSITIVE (NEGATIVE); OCCULT BLOOD,URINE TRACE (NEGATIVE); PH,URINE 5.5 (5.0-8.0); PROTEIN,URINE TRACE mg/dL (NEGATIVE); SPECIFIC GRAVITIY, URINE 1.019 (1.003-1.030); UROBILINOGEN,URINE <=1.0 mg/dL (<=1.0)
[2022-08-14 12:49] LABS: ALANINE AMINOTRANSFERASE 30 U/L (12-78); ALKALINE PHOSPHATASE 84 U/L (46-116); ASPARTATE AMINOTRANSFERASE 19 U/L (15-37); BILIRUBIN,TOTAL 0.5 mg/dL (0.1-1.0); CALCIUM, TOTAL 9.4 mg/dL (8.8-10.5); CARBON DIOXIDE 31 mmol/L (22-29); CREATININE 0.98 mg/dL (0.60-1.30); GLUCOSE,RANDOM 124 mg/dL (70-110); TOTAL PROTEIN, SERUM 7.1 g/dL (6.4-8.2); UREA NITROGEN, BLOOD 16 mg/dL (7-18)
[2022-08-14 12:52] LABS: BACTERIA,URINE Moderate /HPF (None Seen); RBC,URINE 0-2 /HPF (0-2); SQUAMOUS EPITHELIAL CELL,UR Few /LPF (None Seen); WBC,URINE 26-50 /HPF (0-5)
[2022-08-14 12:57] LABS: ANION GAP 6 mmol/L (8-16); CHLORIDE 106 mmol/L (98-107); POTASSIUM 4.4 mmol/L (3.5-5.1); SODIUM SERUM 143 mmol/L (136-145)
[2022-08-14 12:59] LABS: GLOMERULAR FILTR. RATE CALC > 60 mL/min (>60)
[2022-08-14] MEDS ORDERED: SODIUM CHLORIDE 0.9% 1,000 ML IV ONE (13:00)
[2022-08-14] MEDS ORDERED: MORPHINE SULFATE 4 MG/ML SYRINGE IVP ONE (13:00)
[2022-08-14] MEDS ORDERED: ONDANSETRON HCL 4 MG/2 ML VIAL IVP ONE (13:00)
[2022-08-14 14:02] LABS: ALBUMIN 3.7 g/dL (3.4-5.0)
[2022-08-14] MEDS ORDERED: CefTRIAXone 1 GM/DEXTROSE 50 ML IV ONE (14:30)
[2022-08-14] MEDS ORDERED: CIPR500T10 PO (15:05)
[2022-08-14] MEDS ORDERED: PHEN-846 PO (15:05)
[2022-08-14 15:09] VITALS: BP 126/71
== END 2022-08-14 15:23 | disposition home or self-care (01) ==
LOC: EMS 11:22
DX: N39.0 Urinary tract infection, site not specified (principal); R10.31 Right lower quadrant pain; J45.909 Unspecified asthma, uncomplicated; J44.9 Chronic obstructive pulmonary disease, unspecified; E11.9 Type 2 diabetes mellitus without complications; I10 Essential (primary) hypertension; Z98.890 Other specified postprocedural states
CPT/HCPCS: 99285; 74176; 96365; 96375; 96361; 80053; 81001; 82962; 85025; 36415; 87086; J0696; J2270; J2405; J7030

== ENCOUNTER 2023-01-12 17:03 | Inpatient (IN) | payer MEDICARE, MEDICAID ==
[~2023-01-12] VITALS: Ht 170.2 cm; Wt 116.6 kg
[~2023-01-12 17:03] MED LIST changes: -AMLO-257 PO; +AMLO5TAB66 PO; +ASPI-1444 PO; -ASPI-1450 PO; +ATOR20TA65 PO; -ATOR20TA86 PO; -AUD NEB; -BUDE10.2 IH; -CEPH-582 PO; +CIPR500T10 PO; -DEXT15LI38 PO; -FURO20 PO; +HYDR25TA PO; +IPRA3AMP24 NEB; +METF-1211 PO; +MONT-40 PO; +NAPR-1025 PO; -OMEP20 PO; +OMEP20CA12 PO; +PHEN-846 PO; -PRED5TAB2 PO; -ROFL500T PO; -SIME80TA82 PO
[2023-01-12] MEDS ORDERED: BUDE10.2 IH (17:28)
[2023-01-12] MEDS ORDERED: IPRNEB NEB (17:28)
[2023-01-12] MEDS ORDERED: ALBU0.8311 NEB (17:28)
[2023-01-12] MEDS ORDERED: ALBU8HFA IH (17:28)
[2023-01-12] MEDS ORDERED: SUCR1TAB PO (17:28)
[2023-01-12] MEDS ORDERED: ALBUTEROL SULFATE 2.5 MG/0.5 ML NEB SOLUTION NEB ONE (17:30)
[2023-01-12] MEDS ORDERED: MethylPREDNISolone SOD SUCC 125 MG/2 ML VIAL IVP ONE (17:30)
[2023-01-12] MEDS ORDERED: SODIUM CHLORIDE 0.9% 1,000 ML IV ONE ×3 (17:30→19:15)
[2023-01-12] MEDS ORDERED: ACETAMINOPHEN 500 MG TABLET PO ONE (17:30)
[2023-01-12] MEDS ORDERED: IPRATROPIUM BROMIDE 0.5 MG/2.5 ML NEB SOLUTION NEB ONE (17:30)
[2023-01-12 18:03] LABS: HEMATOCRIT 42.2 % (41-53); HEMOGLOBIN 13.4 g/dL (13.5-17.5); MEAN CORPUSCULAR HEMOGLOBIN 25.8 pg (26.0-34.0); MEAN CORPUSCULAR HGB CONC 31.8 G/dL (31.0-37.0); MEAN CORPUSCULAR VOLUME 81 fL (80-100); PLATELET COUNT (AUTO) 341 K/uL (150-450); RED CELL DISTRIBUTION WIDTH 15.3 % (11.5-14.5)
[2023-01-12 18:19] LABS: COVID AG,FIA SOURCE NASOPHARYNGEAL
[2023-01-12 18:25] LABS: BAND NEUTROPHILS % (MANUAL) 14 % (0-5); LACTIC ACID 2.1 mmol/L (0.4-2.0); LYMPHOCYTES % (MANUAL) 5 % (22-44); MONOCYTES % (MANUAL) 7 % (2-9); SEGMENTED NEUTROPHILS % 74 % (40-70)
[2023-01-12 18:30] LABS: ANION GAP 11 mmol/L (8-16); CALCIUM, TOTAL 9.5 mg/dL (8.8-10.5); CARBON DIOXIDE 28 mmol/L (22-29); CHLORIDE 102 mmol/L (98-107); CREATININE 1.19 mg/dL (0.60-1.30); GLOMERULAR FILTR. RATE CALC > 60 mL/min (>60); GLUCOSE,RANDOM 106 mg/dL (70-110); SODIUM SERUM 141 mmol/L (136-145); UREA NITROGEN, BLOOD 16 mg/dL (7-18)
[2023-01-12 18:34] LABS: APPEARANCE,URINE CLEAR (CLEAR); BILIRUBIN,URINE NEGATIVE (NEGATIVE); GLUCOSE, URINE (UA) NEGATIVE (NEGATIVE); KETONES,URINE NEGATIVE (NEGATIVE); LEUKOCYTE ESTERASE ,URINE NEGATIVE (NEGATIVE); NITRATE,URINE NEGATIVE (NEGATIVE); OCCULT BLOOD,URINE NEGATIVE (NEGATIVE); PH,URINE 7.5 (5.0-8.0); PROTEIN,URINE TRACE mg/dL (NEGATIVE); SPECIFIC GRAVITIY, URINE 1.021 (1.003-1.030); UROBILINOGEN,URINE <=1.0 mg/dL (<=1.0)
[2023-01-12 18:42] LABS: INFLUENZA TYPE A NEGATIVE FOR TYPE A (NEGATIVE); INFLUENZA TYPE B NEGATIVE FOR TYPE B (NEGATIVE)
[2023-01-12 18:49] LABS: BACTERIA,URINE None Seen /HPF (None Seen); RBC,URINE 0-2 /HPF (0-2); SQUAMOUS EPITHELIAL CELL,UR Rare /LPF (None Seen); WBC,URINE 0-2 /HPF (0-5)
[2023-01-12 18:53] LABS: ALANINE AMINOTRANSFERASE 24 U/L (12-78); ALBUMIN 4.1 g/dL (3.4-5.0); ALKALINE PHOSPHATASE 92 U/L (46-116); ASPARTATE AMINOTRANSFERASE 18 U/L (15-37); BILIRUBIN,TOTAL 0.9 mg/dL (0.1-1.0); CREATINE KINASE, TOTAL ONLY 110 U/L (39-308)
[2023-01-12] MEDS ORDERED: CefTRIAXone 1 GM/DEXTROSE 50 ML IV ONE (19:15)
[2023-01-12] MEDS ORDERED: AZITHROMYCIN 500 MG/NS 250 ML IV ONE (19:15)
[2023-01-12] MEDS ORDERED: ONDANSETRON HCL 4 MG/2 ML VIAL IVP PRN ×2 (19:30→20:15)
[2023-01-12] MEDS ORDERED: ACETAMINOPHEN 325 MG TABLET PO PRN ×2 (19:30→20:15)
[2023-01-12] MEDS ORDERED: ALBUTEROL SULFATE 2.5 MG/0.5 ML NEB SOLUTION NEB PRN (20:15)
[2023-01-12] MEDS ORDERED: IPRATROPIUM BROMIDE 0.5 MG/2.5 ML NEB SOLUTION NEB PRN (20:15)
[2023-01-12] MEDS ORDERED: BISACODYL 10 MG RECTAL RECTAL SUPPOSITORY PR PRN (20:15)
[2023-01-12] MEDS ORDERED: HYDROCODONE/ACETAMINOPHEN 5-325 MG TABLET PO PRN (20:15)
[2023-01-12] MEDS ORDERED: MAGNESIUM HYDROXIDE SUSPENSION 30 ML UDCUP PO PRN (20:15)
[2023-01-12] MEDS ORDERED: ZOLPIDEM TARTRATE 5 MG TABLET PO PRN (20:15)
[2023-01-12] MEDS ORDERED: MORPHINE SULFATE 2 MG/ML SYRINGE IVP PRN (20:15)
[2023-01-12] MEDS: DOCUSATE SODIUM 100 MG CAPSULE PO SCH (21:00)
[2023-01-12] MEDS: GuaiFENesin SR 600 MG ER TABLET PO SCH (22:05)
[2023-01-12] MEDS: BENZONATATE 100 MG CAPSULE PO SCH (22:05)
[2023-01-12] MEDS: ATORVASTATIN CALCIUM 20 MG TABLET PO SCH (22:05)
[2023-01-12] MEDS ORDERED: IPRATROPIUM BROMIDE 0.5 MG/2.5 ML NEB SOLUTION NEB SCH (23:00)
[2023-01-12] MEDS ORDERED: ALBUTEROL SULFATE 2.5 MG/0.5 ML NEB SOLUTION NEB SCH (23:00)
[2023-01-13] VITALS (7 sets, daily range): BP systolic 119–142; BP diastolic 66–78
[2023-01-13] MEDS: BUDESONIDE/FORMOTEROL FUMARATE 160-4.5 MCG/PUFF 10.2 GM INHALER IH SCH ×3 (00:37→19:43)
[2023-01-13] MEDS: MethylPREDNISolone SOD SUCC 125 MG/2 ML VIAL IVP SCH ×2 (01:03→06:16)
[2023-01-13] MEDS ORDERED: DEXTROSE 50%-WATER 25 GM/50 ML SYRINGE IVP PRN (01:30)
[2023-01-13] MEDS: IPRATROPIUM BROMIDE 0.5 MG/2.5 ML NEB SOLUTION NEB SCH ×4 (01:37→21:05)
[2023-01-13] MEDS: ALBUTEROL SULFATE 2.5 MG/0.5 ML NEB SOLUTION NEB SCH ×4 (01:37→21:05)
[2023-01-13] MEDS: INSULIN LISPRO 100 UNITS/ML SQ PRN ×4 (06:25→19:39)
[2023-01-13 07:26] LABS: EOSINOPHILS % (AUTO) 0 % (1.0-6.0); HEMATOCRIT 36.6 % (41-53); HEMOGLOBIN 11.6 g/dL (13.5-17.5); LYMPHOCYTES # (AUTO) 0.9 K/uL (1.0-4.8); LYMPHOCYTES % (AUTO) 5.5 % (22.0-44.0); MEAN CORPUSCULAR HEMOGLOBIN 25.8 pg (26.0-34.0); MEAN CORPUSCULAR HGB CONC 31.6 G/dL (31.0-37.0); MEAN CORPUSCULAR VOLUME 82 fL (80-100); MONOCYTES # (AUTO) 0.2 K/uL (0.1-1.0); MONOCYTES % (AUTO) 1.5 % (2.0-9.0); NEUTROPHILS # (AUTO) 15.4 K/uL (1.8-7.7); PLATELET COUNT (AUTO) 292 K/uL (150-450); RED BLOOD CELL COUNT(AUTO) 4.48 MIL/uL (4.50-5.90); RED CELL DISTRIBUTION WIDTH 15.3 % (11.5-14.5)
[2023-01-13 07:36] LABS: ANION GAP 10 mmol/L (8-16); CALCIUM, TOTAL 8.6 mg/dL (8.8-10.5); CARBON DIOXIDE 25 mmol/L (22-29); CHLORIDE 107 mmol/L (98-107); CREATININE 1.11 mg/dL (0.60-1.30); GLOMERULAR FILTR. RATE CALC > 60 mL/min (>60); GLUCOSE,RANDOM 204 mg/dL (70-110); POTASSIUM 3.5 mmol/L (3.5-5.1); SODIUM SERUM 142 mmol/L (136-145); UREA NITROGEN, BLOOD 18 mg/dL (7-18)
[2023-01-13] MEDS: HYDROCHLOROTHIAZIDE 25 MG TABLET PO SCH (08:54)
[2023-01-13] MEDS: BENZONATATE 100 MG CAPSULE PO SCH ×3 (08:54→19:40)
[2023-01-13] MEDS: HEPARIN SODIUM,PORCINE 5,000 UNITS/ML VIAL SQ SCH ×4 (08:54→23:33)
[2023-01-13] MEDS: GuaiFENesin SR 600 MG ER TABLET PO SCH ×2 (08:55→19:42)
[2023-01-13] MEDS: MONTELUKAST SODIUM 10 MG TABLET PO SCH (08:55)
[2023-01-13] MEDS: PANTOPRAZOLE SODIUM 40 MG DR TABLET PO SCH (08:55)
[2023-01-13] MEDS: AmLODIPine BESYLATE 5 MG TABLET PO SCH (08:55)
[2023-01-13] MEDS: DOCUSATE SODIUM 100 MG CAPSULE PO SCH ×2 (08:55→19:41)
[2023-01-13] MEDS: ASPIRIN 81 MG DR TABLET PO SCH (08:56)
[2023-01-13 09:02] LABS: GLUCOMETER DEV NAME(LOC) 5S.2B; GLUCOSE,POINT OF CARE 179 MG/DL (70-110)
[2023-01-13] MEDS: MethylPREDNISolone SOD SUCC 40 MG/ML VIAL IVP SCH ×3 (12:40→23:32)
[2023-01-13 14:06] LABS: GLUCOMETER DEV NAME(LOC) 5N.1C; GLUCOSE,POINT OF CARE 197 MG/DL (70-110)
[2023-01-13] MEDS ORDERED: SODIUM CHLORIDE 0.9% 1,000 ML ONE (19:24)
[2023-01-13] MEDS: ATORVASTATIN CALCIUM 20 MG TABLET PO SCH (19:41)
[2023-01-13] MEDS: CefTRIAXone 1 GM/DEXTROSE 50 ML IV SCH ×2 (19:43→22:52)
[2023-01-13] MEDS: AZITHROMYCIN 500 MG/NS 250 ML IV SCH (23:32)
[2023-01-14 03:34] VITALS: BP 119/74
[2023-01-14] MEDS: ALBUTEROL SULFATE 2.5 MG/0.5 ML NEB SOLUTION NEB SCH ×4 (03:54→20:58)
[2023-01-14] MEDS: IPRATROPIUM BROMIDE 0.5 MG/2.5 ML NEB SOLUTION NEB SCH ×4 (03:54→20:58)
[2023-01-14] MEDS: MethylPREDNISolone SOD SUCC 40 MG/ML VIAL IVP SCH ×3 (05:54→18:04)
[2023-01-14] MEDS: INSULIN LISPRO 100 UNITS/ML SQ PRN ×4 (05:57→20:44)
[2023-01-14 07:15] LABS: EOSINOPHILS % (AUTO) 0 % (1.0-6.0); HEMATOCRIT 37.7 % (41-53); LYMPHOCYTES # (AUTO) 1.2 K/uL (1.0-4.8); LYMPHOCYTES % (AUTO) 6.1 % (22.0-44.0); MEAN CORPUSCULAR HGB CONC 31.8 G/dL (31.0-37.0); MEAN CORPUSCULAR VOLUME 82 fL (80-100); MONOCYTES # (AUTO) 0.9 K/uL (0.1-1.0); MONOCYTES % (AUTO) 4.9 % (2.0-9.0); NEUTROPHILS # (AUTO) 16.8 K/uL (1.8-7.7); PLATELET COUNT (AUTO) 324 K/uL (150-450); RED BLOOD CELL COUNT(AUTO) 4.61 MIL/uL (4.50-5.90); RED CELL DISTRIBUTION WIDTH 15.7 % (11.5-14.5)
[2023-01-14 07:25] LABS: CALCIUM, TOTAL 9.1 mg/dL (8.8-10.5); CREATININE 1.24 mg/dL (0.60-1.30); POTASSIUM 3.7 mmol/L (3.5-5.1)
[2023-01-14 07:31] LABS: GLUCOMETER DEV NAME(LOC) 5S.2B; GLUCOSE,POINT OF CARE 273 MG/DL (70-110)
[2023-01-14 07:31] LABS: GLUCOMETER DEV NAME(LOC) 5S.2B; GLUCOSE,POINT OF CARE 204 MG/DL (70-110)
[2023-01-14 07:35] VITALS: BP 138/80
[2023-01-14] MEDS: HEPARIN SODIUM,PORCINE 5,000 UNITS/ML VIAL SQ SCH ×2 (09:04→16:17)
[2023-01-14] MEDS: BUDESONIDE/FORMOTEROL FUMARATE 160-4.5 MCG/PUFF 10.2 GM INHALER IH SCH ×2 (09:05→20:48)
[2023-01-14] MEDS: AmLODIPine BESYLATE 5 MG TABLET PO SCH (09:05)
[2023-01-14] MEDS: GuaiFENesin SR 600 MG ER TABLET PO SCH ×2 (09:06→20:45)
[2023-01-14] MEDS: PANTOPRAZOLE SODIUM 40 MG DR TABLET PO SCH (09:06)
[2023-01-14] MEDS: MONTELUKAST SODIUM 10 MG TABLET PO SCH (09:06)
[2023-01-14] MEDS: HYDROCHLOROTHIAZIDE 25 MG TABLET PO SCH (09:06)
[2023-01-14] MEDS: BENZONATATE 100 MG CAPSULE PO SCH ×3 (09:06→20:45)
[2023-01-14] MEDS: ASPIRIN 81 MG DR TABLET PO SCH (09:06)
[2023-01-14] MEDS: DOCUSATE SODIUM 100 MG CAPSULE PO SCH ×2 (09:06→20:46)
[2023-01-14 11:02] VITALS: BP 126/76
[2023-01-14 11:33] LABS: GLUCOMETER DEV NAME(LOC) 5N.1C; GLUCOSE,POINT OF CARE 180 MG/DL (70-110)
[2023-01-14 15:42] VITALS: BP 116/77
[2023-01-14 19:19] VITALS: BP 127/72
[2023-01-14] MEDS: ATORVASTATIN CALCIUM 20 MG TABLET PO SCH (20:45)
[2023-01-14] MEDS: AZITHROMYCIN 500 MG/NS 250 ML IV SCH (20:47)
[2023-01-14] MEDS: CefTRIAXone 1 GM/DEXTROSE 50 ML IV SCH (20:47)
[2023-01-14 21:07] LABS: GLUCOMETER DEV NAME(LOC) 5S.2B; GLUCOSE,POINT OF CARE 196 MG/DL (70-110)
[2023-01-15 00:02] VITALS: BP 118/71
[2023-01-15] MEDS: MethylPREDNISolone SOD SUCC 40 MG/ML VIAL IVP SCH ×4 (00:39→16:59)
[2023-01-15] MEDS: HEPARIN SODIUM,PORCINE 5,000 UNITS/ML VIAL SQ SCH ×3 (00:39→16:00)
[2023-01-15] MEDS: IPRATROPIUM BROMIDE 0.5 MG/2.5 ML NEB SOLUTION NEB SCH ×3 (02:00→13:56)
[2023-01-15] MEDS: ALBUTEROL SULFATE 2.5 MG/0.5 ML NEB SOLUTION NEB SCH ×3 (02:00→13:56)
[2023-01-15 04:43] VITALS: BP 116/71
[2023-01-15] MEDS: INSULIN LISPRO 100 UNITS/ML SQ PRN (05:48)
[2023-01-15 07:01] LABS: GLUCOMETER DEV NAME(LOC) 5S.2B; GLUCOSE,POINT OF CARE 159 MG/DL (70-110)
[2023-01-15 07:07] LABS: GLUCOMETER DEV NAME(LOC) 5N.1C; GLUCOSE,POINT OF CARE 222 MG/DL (70-110)
[2023-01-15 07:45] LABS: BASOPHILS % (AUTO) 0.4 % (0.0-2.0); EOSINOPHILS % (AUTO) 0 % (1.0-6.0); HEMATOCRIT 37.8 % (41-53); LYMPHOCYTES % (AUTO) 6.6 % (22.0-44.0); MEAN CORPUSCULAR HEMOGLOBIN 25.9 pg (26.0-34.0); MEAN CORPUSCULAR HGB CONC 31.8 G/dL (31.0-37.0); MEAN CORPUSCULAR VOLUME 82 fL (80-100); MONOCYTES # (AUTO) 0.5 K/uL (0.1-1.0); MONOCYTES % (AUTO) 3.7 % (2.0-9.0); NEUTROPHILS # (AUTO) 13.4 K/uL (1.8-7.7); PLATELET COUNT (AUTO) 313 K/uL (150-450); RED BLOOD CELL COUNT(AUTO) 4.64 MIL/uL (4.50-5.90); RED CELL DISTRIBUTION WIDTH 15.6 % (11.5-14.5)
[2023-01-15 07:49] LABS: NEUTROPHILS % (AUTO) 89.3 % (40.0-70.0)
[2023-01-15 07:50] LABS: ANION GAP 8 mmol/L (8-16); CARBON DIOXIDE 28 mmol/L (22-29); CHLORIDE 105 mmol/L (98-107); CREATININE 1.17 mg/dL (0.60-1.30); GLOMERULAR FILTR. RATE CALC > 60 mL/min (>60); GLUCOSE,RANDOM 168 mg/dL (70-110); POTASSIUM 3.7 mmol/L (3.5-5.1); SODIUM SERUM 141 mmol/L (136-145); UREA NITROGEN, BLOOD 26 mg/dL (7-18)
[2023-01-15 07:56] VITALS: BP 125/72
[2023-01-15] MEDS: DOCUSATE SODIUM 100 MG CAPSULE PO SCH (08:55)
[2023-01-15] MEDS: ASPIRIN 81 MG DR TABLET PO SCH (08:55)
[2023-01-15] MEDS: MONTELUKAST SODIUM 10 MG TABLET PO SCH (08:55)
[2023-01-15] MEDS: PANTOPRAZOLE SODIUM 40 MG DR TABLET PO SCH (08:55)
[2023-01-15] MEDS: BENZONATATE 100 MG CAPSULE PO SCH ×2 (08:55→16:59)
[2023-01-15] MEDS: AmLODIPine BESYLATE 5 MG TABLET PO SCH (08:56)
[2023-01-15] MEDS: HYDROCHLOROTHIAZIDE 25 MG TABLET PO SCH (08:56)
[2023-01-15] MEDS: BUDESONIDE/FORMOTEROL FUMARATE 160-4.5 MCG/PUFF 10.2 GM INHALER IH SCH (08:56)
[2023-01-15] MEDS: GuaiFENesin SR 600 MG ER TABLET PO SCH (08:56)
[2023-01-15 11:48] VITALS: BP 126/78
[2023-01-15 22:51] LABS: GLUCOMETER DEV NAME(LOC) 5N.1C; GLUCOSE,POINT OF CARE 133 MG/DL (70-110)
== END 2023-01-15 18:05 | disposition home or self-care (01) | DRG 871 ==
LOC: EMS 17:07 → 5S 23:00
PROVIDERS: ADMIT Internal Medicine; ATTEND Internal Medicine
DX: A41.9 Sepsis, unspecified organism (principal); J18.9 Pneumonia, unspecified organism; J44.0 Chronic obstructive pulmonary disease with (acute) lower respiratory infection; J44.1 Chronic obstructive pulmonary disease with (acute) exacerbation; E11.9 Type 2 diabetes mellitus without complications; I10 Essential (primary) hypertension; Z20.822 Contact with and (suspected) exposure to COVID-19; K21.9 Gastro-esophageal reflux disease without esophagitis; E78.5 Hyperlipidemia, unspecified; Z99.81 Dependence on supplemental oxygen; Z79.4 Long term (current) use of insulin
CPT/HCPCS: 71045; 80048; 80053; 81001; 82550; 82962; 83605; 84484; 85025; 87040; 87804; 94640; 97162; 97166; 97535; 99291; J0456; J0696; J1644; J2920; J2930; J7030; 36415-L1; 36415-TC; J7613

== ENCOUNTER 2023-02-08 22:11 | Inpatient (IN) | payer MEDICARE, MEDICAID ==
[~2023-02-08] VITALS: Ht 167.6 cm; Wt 99.0 kg
[~2023-02-08 22:11] MED LIST changes: +ALBU0.8311 NEB; +ALBU18HF12 IH; -ALBU8.5H8 IH; +BUDE10.2 IH; -CIPR500T10 PO; -IPRA3AMP24 NEB; +IPRNEB NEB; -PHEN-846 PO; +SUCR1TAB PO
[2023-02-08 22:35] LABS: COVID AG,FIA SOURCE NASAL SWAB
[2023-02-08 22:57] LABS: INFLUENZA TYPE A NEGATIVE FOR TYPE A (NEGATIVE); INFLUENZA TYPE B NEGATIVE FOR TYPE B (NEGATIVE)
[2023-02-08] MEDS ORDERED: ALBUTEROL SULFATE 2.5 MG/0.5 ML NEB SOLUTION NEB ONE (23:45)
[2023-02-08] MEDS ORDERED: IPRATROPIUM BROMIDE 0.5 MG/2.5 ML NEB SOLUTION NEB ONE (23:45)
[2023-02-08 23:58] LABS: EOSINOPHILS % (AUTO) 1.5 % (1.0-6.0); HEMATOCRIT 43.6 % (41-53); HEMOGLOBIN 14.1 g/dL (13.5-17.5); LYMPHOCYTES # (AUTO) 1.1 K/uL (1.0-4.8); LYMPHOCYTES % (AUTO) 20.1 % (22.0-44.0); MEAN CORPUSCULAR HEMOGLOBIN 26.8 pg (26.0-34.0); MEAN CORPUSCULAR HGB CONC 32.5 G/dL (31.0-37.0); MEAN CORPUSCULAR VOLUME 83 fL (80-100); MONOCYTES # (AUTO) 0.6 K/uL (0.1-1.0); MONOCYTES % (AUTO) 10.5 % (2.0-9.0); NEUTROPHILS # (AUTO) 3.7 K/uL (1.8-7.7); NEUTROPHILS % (AUTO) 66.9 % (40.0-70.0); PLATELET COUNT (AUTO) 201 K/uL (150-450); RED BLOOD CELL COUNT(AUTO) 5.28 MIL/uL (4.50-5.90); RED CELL DISTRIBUTION WIDTH 17.5 % (11.5-14.5)
[2023-02-09 00:31] LABS: ANION GAP 10 mmol/L (8-16); B-TYPE NATRIURETIC PEPTIDE 9 pg/mL (0-100); CALCIUM, TOTAL 9.2 mg/dL (8.8-10.5); CARBON DIOXIDE 29 mmol/L (22-29); CHLORIDE 102 mmol/L (98-107); CREATININE 1.09 mg/dL (0.60-1.30); GLOMERULAR FILTR. RATE CALC > 60 mL/min (>60); GLUCOSE,RANDOM 113 mg/dL (70-110); POTASSIUM 3.9 mmol/L (3.5-5.1); SODIUM SERUM 141 mmol/L (136-145); UREA NITROGEN, BLOOD 15 mg/dL (7-18)
[2023-02-09 00:37] LABS: ALANINE AMINOTRANSFERASE 34 U/L (12-78); ALBUMIN 3.7 g/dL (3.4-5.0); ALKALINE PHOSPHATASE 83 U/L (46-116); ASPARTATE AMINOTRANSFERASE 20 U/L (15-37); BILIRUBIN,TOTAL 0.5 mg/dL (0.1-1.0); CREATINE KINASE, TOTAL ONLY 62 U/L (39-308); TOTAL PROTEIN, SERUM 7.1 g/dL (6.4-8.2)
[2023-02-09] MEDS ORDERED: MethylPREDNISolone SOD SUCC 125 MG/2 ML VIAL IVP ONE (01:30)
[2023-02-09 01:40] LABS: APPEARANCE,URINE CLEAR (CLEAR); BILIRUBIN,URINE NEGATIVE (NEGATIVE); GLUCOSE, URINE (UA) NEGATIVE (NEGATIVE); KETONES,URINE NEGATIVE (NEGATIVE); LEUKOCYTE ESTERASE ,URINE NEGATIVE (NEGATIVE); NITRATE,URINE NEGATIVE (NEGATIVE); OCCULT BLOOD,URINE NEGATIVE (NEGATIVE); PH,URINE 6.5 (5.0-8.0); PROTEIN,URINE TRACE mg/dL (NEGATIVE); SPECIFIC GRAVITIY, URINE 1.016 (1.003-1.030); UROBILINOGEN,URINE <=1.0 mg/dL (<=1.0)
[2023-02-09] MEDS ORDERED: MAGNESIUM HYDROXIDE SUSPENSION 30 ML UDCUP PO PRN (07:45)
[2023-02-09] MEDS ORDERED: ONDANSETRON HCL 4 MG/2 ML VIAL IVP PRN (07:45)
[2023-02-09] MEDS ORDERED: DEXTROSE 50%-WATER 25 GM/50 ML SYRINGE IVP PRN (07:45)
[2023-02-09] MEDS ORDERED: FAMOTIDINE 20 MG TABLET PO SCH (09:00)
[2023-02-09 09:04] VITALS: BP 147/77
[2023-02-09] MEDS: MethylPREDNISolone SOD SUCC 125 MG/2 ML VIAL IVP SCH ×3 (09:18→23:30)
[2023-02-09] MEDS: HEPARIN SODIUM,PORCINE 5,000 UNITS/ML VIAL SQ SCH ×3 (09:18→23:30)
[2023-02-09 11:02] VITALS: BP 128/79
[2023-02-09] MEDS: INSULIN LISPRO 100 UNITS/ML SQ PRN ×3 (11:43→20:20)
[2023-02-09] MEDS: OMEPRAZOLE 20 MG CAPSULE PO SCH (16:00)
[2023-02-09] MEDS ORDERED: ALBUTEROL SULFATE 2.5 MG/0.5 ML NEB SOLUTION NEB PRN (16:00)
[2023-02-09] MEDS ORDERED: IPRATROPIUM BROMIDE 0.5 MG/2.5 ML NEB SOLUTION NEB PRN (16:00)
[2023-02-09] MEDS: MONTELUKAST SODIUM 10 MG TABLET PO SCH (17:18)
[2023-02-09] MEDS: ASPIRIN 81 MG DR TABLET PO SCH (17:18)
[2023-02-09] MEDS: HYDROCHLOROTHIAZIDE 25 MG TABLET PO SCH (17:19)
[2023-02-09] MEDS: ACETAMINOPHEN 325 MG TABLET PO PRN (17:27)
[2023-02-09 17:31] LABS: GLUCOMETER DEV NAME(LOC) 5N.2C; GLUCOSE,POINT OF CARE 202 MG/DL (70-110)
[2023-02-09] MEDS: ALBUTEROL SULFATE 2.5 MG/0.5 ML NEB SOLUTION NEB SCH (19:50)
[2023-02-09] MEDS: IPRATROPIUM BROMIDE 0.5 MG/2.5 ML NEB SOLUTION NEB SCH (19:51)
[2023-02-09] MEDS: ATORVASTATIN CALCIUM 20 MG TABLET PO SCH (20:19)
[2023-02-09 20:28] VITALS: BP 129/69
[2023-02-09 20:56] LABS: GLUCOMETER DEV NAME(LOC) 5N.1C; GLUCOSE,POINT OF CARE 176 MG/DL (70-110)
[2023-02-10 00:35] VITALS: BP 124/45
[2023-02-10 04:52] VITALS: BP 129/69
[2023-02-10] MEDS: INSULIN LISPRO 100 UNITS/ML SQ PRN ×3 (06:29→20:28)
[2023-02-10 06:51] LABS: GLUCOMETER DEV NAME(LOC) 5N.1C; GLUCOSE,POINT OF CARE 151 MG/DL (70-110)
[2023-02-10 07:06] LABS: GLUCOMETER DEV NAME(LOC) 5S.1B; GLUCOSE,POINT OF CARE 156 MG/DL (70-110)
[2023-02-10 07:25] VITALS: BP 125/80
[2023-02-10] MEDS: IPRATROPIUM BROMIDE 0.5 MG/2.5 ML NEB SOLUTION NEB SCH ×3 (08:19→19:59)
[2023-02-10] MEDS: ALBUTEROL SULFATE 2.5 MG/0.5 ML NEB SOLUTION NEB SCH ×3 (08:19→19:59)
[2023-02-10] MEDS: ASPIRIN 81 MG DR TABLET PO SCH (09:05)
[2023-02-10] MEDS: OMEPRAZOLE 20 MG CAPSULE PO SCH (09:05)
[2023-02-10] MEDS: HYDROCHLOROTHIAZIDE 25 MG TABLET PO SCH (09:05)
[2023-02-10] MEDS: HEPARIN SODIUM,PORCINE 5,000 UNITS/ML VIAL SQ SCH ×2 (09:05→16:18)
[2023-02-10] MEDS: AmLODIPine BESYLATE 5 MG TABLET PO SCH (09:05)
[2023-02-10] MEDS: MONTELUKAST SODIUM 10 MG TABLET PO SCH (09:05)
[2023-02-10] MEDS: MethylPREDNISolone SOD SUCC 125 MG/2 ML VIAL IVP SCH ×2 (09:05→18:29)
[2023-02-10 12:05] VITALS: BP 130/75
[2023-02-10 14:13] LABS: CALCIUM, TOTAL 9.3 mg/dL (8.8-10.5); CREATININE 1.23 mg/dL (0.60-1.30); MAGNESIUM 2.2 mg/dL (1.80-2.40)
[2023-02-10 18:07] VITALS: BP 120/79
[2023-02-10 18:15] LABS: GLUCOMETER DEV NAME(LOC) 5S.2C; GLUCOSE,POINT OF CARE 149 MG/DL (70-110)
[2023-02-10 18:16] LABS: GLUCOMETER DEV NAME(LOC) 5S.2C; GLUCOSE,POINT OF CARE 125 MG/DL (70-110)
[2023-02-10 20:12] VITALS: BP 136/78
[2023-02-10] MEDS: ATORVASTATIN CALCIUM 20 MG TABLET PO SCH (20:27)
[2023-02-10] MEDS ORDERED: SODIUM CHLORIDE 0.9% 500 ML IV ONE (20:48)
[2023-02-10 21:21] LABS: GLUCOMETER DEV NAME(LOC) 5S.2C; GLUCOSE,POINT OF CARE 175 MG/DL (70-110)
[2023-02-11] MEDS: HEPARIN SODIUM,PORCINE 5,000 UNITS/ML VIAL SQ SCH ×4 (00:29→23:22)
[2023-02-11] MEDS: MethylPREDNISolone SOD SUCC 125 MG/2 ML VIAL IVP SCH ×5 (00:29→23:22)
[2023-02-11 01:30] VITALS: BP 124/75
[2023-02-11 04:55] VITALS: BP 137/83
[2023-02-11 07:30] VITALS: BP 130/80
[2023-02-11 07:30] LABS: HEMATOCRIT 44.4 % (41-53); HEMOGLOBIN 14.1 g/dL (13.5-17.5); MEAN CORPUSCULAR HEMOGLOBIN 26.1 pg (26.0-34.0); MEAN CORPUSCULAR HGB CONC 31.7 G/dL (31.0-37.0); MEAN CORPUSCULAR VOLUME 82 fL (80-100); PLATELET COUNT (AUTO) 245 K/uL (150-450); RED BLOOD CELL COUNT(AUTO) 5.39 MIL/uL (4.50-5.90); RED CELL DISTRIBUTION WIDTH 17.2 % (11.5-14.5)
[2023-02-11 07:52] LABS: ALANINE AMINOTRANSFERASE 34 U/L (12-78); ALBUMIN 3.8 g/dL (3.4-5.0); ALKALINE PHOSPHATASE 73 U/L (46-116); ANION GAP 7 mmol/L (8-16); ASPARTATE AMINOTRANSFERASE 16 U/L (15-37); BILIRUBIN,TOTAL 0.5 mg/dL (0.1-1.0); CALCIUM, TOTAL 9.6 mg/dL (8.8-10.5); CARBON DIOXIDE 29 mmol/L (22-29); CHLORIDE 101 mmol/L (98-107); CREATININE 1.13 mg/dL (0.60-1.30); GLOMERULAR FILTR. RATE CALC > 60 mL/min (>60); GLUCOSE,RANDOM 162 mg/dL (70-110); POTASSIUM 4.4 mmol/L (3.5-5.1); SODIUM SERUM 137 mmol/L (136-145); TOTAL PROTEIN, SERUM 7.6 g/dL (6.4-8.2); UREA NITROGEN, BLOOD 31 mg/dL (7-18)
[2023-02-11 08:15] LABS: GLUCOMETER DEV NAME(LOC) 5N.1C; GLUCOSE,POINT OF CARE 140 MG/DL (70-110)
[2023-02-11 08:22] LABS: BAND NEUTROPHILS % (MANUAL) 4 % (0-5); LYMPHOCYTES % (MANUAL) 4 % (22-44); MONOCYTES % (MANUAL) 4 % (2-9); REACTIVE LYMPHOCYTES 1 % (0-0); SEGMENTED NEUTROPHILS % 87 % (40-70)
[2023-02-11] MEDS: IPRATROPIUM BROMIDE 0.5 MG/2.5 ML NEB SOLUTION NEB SCH ×3 (08:22→20:28)
[2023-02-11] MEDS: ALBUTEROL SULFATE 2.5 MG/0.5 ML NEB SOLUTION NEB SCH ×3 (08:22→20:28)
[2023-02-11 08:23] LABS: WBC MORPHOLOGY TOXIC GRANULATION
[2023-02-11] MEDS: ASPIRIN 81 MG DR TABLET PO SCH (09:44)
[2023-02-11] MEDS: AmLODIPine BESYLATE 5 MG TABLET PO SCH (09:44)
[2023-02-11] MEDS: HYDROCHLOROTHIAZIDE 25 MG TABLET PO SCH (09:45)
[2023-02-11] MEDS: MONTELUKAST SODIUM 10 MG TABLET PO SCH (09:45)
[2023-02-11] MEDS: OMEPRAZOLE 20 MG CAPSULE PO SCH (09:45)
[2023-02-11 11:45] VITALS: BP 139/77
[2023-02-11 11:56] LABS: GLUCOMETER DEV NAME(LOC) 5N.1C; GLUCOSE,POINT OF CARE 158 MG/DL (70-110)
[2023-02-11] MEDS: INSULIN LISPRO 100 UNITS/ML SQ PRN ×3 (12:46→21:01)
[2023-02-11 19:41] LABS: GLUCOMETER DEV NAME(LOC) 5S.2C; GLUCOSE,POINT OF CARE 200 MG/DL (70-110)
[2023-02-11] MEDS: ATORVASTATIN CALCIUM 20 MG TABLET PO SCH (20:00)
[2023-02-11] MEDS: ACETAMINOPHEN 325 MG TABLET PO PRN (20:14)
[2023-02-11 20:23] VITALS: BP 138/93
[2023-02-11 21:50] LABS: GLUCOMETER DEV NAME(LOC) 6N.1; GLUCOSE,POINT OF CARE 202 MG/DL (70-110)
[2023-02-12 05:15] VITALS: BP 138/88
[2023-02-12] MEDS: MethylPREDNISolone SOD SUCC 125 MG/2 ML VIAL IVP SCH ×4 (05:43→23:20)
[2023-02-12] MEDS: INSULIN LISPRO 100 UNITS/ML SQ PRN ×4 (05:45→19:58)
[2023-02-12 07:01] LABS: GLUCOMETER DEV NAME(LOC) 6N.1; GLUCOSE,POINT OF CARE 173 MG/DL (70-110)
[2023-02-12 08:02] LABS: EOSINOPHILS % (AUTO) 0 % (1.0-6.0); LYMPHOCYTES # (AUTO) 0.5 K/uL (1.0-4.8); LYMPHOCYTES % (AUTO) 4.2 % (22.0-44.0); MEAN CORPUSCULAR HGB CONC 32.5 G/dL (31.0-37.0); MEAN CORPUSCULAR VOLUME 83 fL (80-100); MONOCYTES # (AUTO) 0.4 K/uL (0.1-1.0); MONOCYTES % (AUTO) 3.3 % (2.0-9.0); NEUTROPHILS # (AUTO) 10.9 K/uL (1.8-7.7); PLATELET COUNT (AUTO) 242 K/uL (150-450); RED BLOOD CELL COUNT(AUTO) 5.18 MIL/uL (4.50-5.90); RED CELL DISTRIBUTION WIDTH 16.7 % (11.5-14.5)
[2023-02-12 08:05] LABS: NEUTROPHILS % (AUTO) 92.5 % (40.0-70.0)
[2023-02-12] MEDS: ALBUTEROL SULFATE 2.5 MG/0.5 ML NEB SOLUTION NEB SCH ×3 (08:06→20:14)
[2023-02-12] MEDS: IPRATROPIUM BROMIDE 0.5 MG/2.5 ML NEB SOLUTION NEB SCH ×3 (08:06→20:15)
[2023-02-12 08:08] LABS: ANION GAP 5 mmol/L (8-16); CALCIUM, TOTAL 9.7 mg/dL (8.8-10.5); CARBON DIOXIDE 31 mmol/L (22-29); CHLORIDE 102 mmol/L (98-107); CREATININE 1.15 mg/dL (0.60-1.30); GLOMERULAR FILTR. RATE CALC > 60 mL/min (>60); GLUCOSE,RANDOM 160 mg/dL (70-110); SODIUM SERUM 138 mmol/L (136-145); UREA NITROGEN, BLOOD 33 mg/dL (7-18)
[2023-02-12] MEDS: OMEPRAZOLE 20 MG CAPSULE PO SCH (08:24)
[2023-02-12] MEDS: HEPARIN SODIUM,PORCINE 5,000 UNITS/ML VIAL SQ SCH ×3 (08:24→23:20)
[2023-02-12] MEDS: ASPIRIN 81 MG DR TABLET PO SCH (08:25)
[2023-02-12] MEDS: AmLODIPine BESYLATE 5 MG TABLET PO SCH (08:25)
[2023-02-12] MEDS: HYDROCHLOROTHIAZIDE 25 MG TABLET PO SCH (08:25)
[2023-02-12] MEDS: MONTELUKAST SODIUM 10 MG TABLET PO SCH (08:25)
[2023-02-12 08:44] VITALS: BP 144/78
[2023-02-12 11:31] LABS: GLUCOMETER DEV NAME(LOC) 6S.1B; GLUCOSE,POINT OF CARE 197 MG/DL (70-110)
[2023-02-12 16:17] VITALS: BP 132/77
[2023-02-12 18:31] LABS: GLUCOMETER DEV NAME(LOC) 6S.1B; GLUCOSE,POINT OF CARE 186 MG/DL (70-110)
[2023-02-12 19:50] VITALS: BP 131/68
[2023-02-12] MEDS: ATORVASTATIN CALCIUM 20 MG TABLET PO SCH (19:52)
[2023-02-12 22:36] LABS: GLUCOMETER DEV NAME(LOC) 6S.1B; GLUCOSE,POINT OF CARE 218 MG/DL (70-110)
[2023-02-13 04:35] VITALS: BP 140/68
[2023-02-13] MEDS: INSULIN LISPRO 100 UNITS/ML SQ PRN ×3 (05:43→16:57)
[2023-02-13] MEDS: MethylPREDNISolone SOD SUCC 125 MG/2 ML VIAL IVP SCH ×3 (05:44→17:01)
[2023-02-13] MEDS: IPRATROPIUM BROMIDE 0.5 MG/2.5 ML NEB SOLUTION NEB SCH ×2 (07:23→15:01)
[2023-02-13] MEDS: ALBUTEROL SULFATE 2.5 MG/0.5 ML NEB SOLUTION NEB SCH ×2 (07:23→15:02)
[2023-02-13 07:41] LABS: GLUCOMETER DEV NAME(LOC) 6N.2B; GLUCOSE,POINT OF CARE 171 MG/DL (70-110)
[2023-02-13 07:43] LABS: BASOPHILS % (AUTO) 0.1 % (0.0-2.0); EOSINOPHILS % (AUTO) 0 % (1.0-6.0); HEMOGLOBIN 13.6 g/dL (13.5-17.5); LYMPHOCYTES # (AUTO) 0.4 K/uL (1.0-4.8); LYMPHOCYTES % (AUTO) 4.4 % (22.0-44.0); MEAN CORPUSCULAR HEMOGLOBIN 26.6 pg (26.0-34.0); MEAN CORPUSCULAR HGB CONC 32.4 G/dL (31.0-37.0); MEAN CORPUSCULAR VOLUME 82 fL (80-100); MONOCYTES # (AUTO) 0.4 K/uL (0.1-1.0); MONOCYTES % (AUTO) 4.3 % (2.0-9.0); NEUTROPHILS # (AUTO) 9.2 K/uL (1.8-7.7); PLATELET COUNT (AUTO) 231 K/uL (150-450); RED BLOOD CELL COUNT(AUTO) 5.11 MIL/uL (4.50-5.90); RED CELL DISTRIBUTION WIDTH 16.8 % (11.5-14.5)
[2023-02-13 07:52] LABS: ANION GAP 6 mmol/L (8-16); CALCIUM, TOTAL 9.3 mg/dL (8.8-10.5); CARBON DIOXIDE 31 mmol/L (22-29); CHLORIDE 102 mmol/L (98-107); CREATININE 1.13 mg/dL (0.60-1.30); GLOMERULAR FILTR. RATE CALC > 60 mL/min (>60); GLUCOSE,RANDOM 158 mg/dL (70-110); POTASSIUM 4.1 mmol/L (3.5-5.1); SODIUM SERUM 139 mmol/L (136-145); UREA NITROGEN, BLOOD 32 mg/dL (7-18)
[2023-02-13 08:01] LABS: NEUTROPHILS % (AUTO) 91.2 % (40.0-70.0)
[2023-02-13] MEDS: HYDROCHLOROTHIAZIDE 25 MG TABLET PO SCH (08:04)
[2023-02-13] MEDS: OMEPRAZOLE 20 MG CAPSULE PO SCH (08:04)
[2023-02-13] MEDS: MONTELUKAST SODIUM 10 MG TABLET PO SCH (08:04)
[2023-02-13] MEDS: ASPIRIN 81 MG DR TABLET PO SCH (08:04)
[2023-02-13] MEDS: AmLODIPine BESYLATE 5 MG TABLET PO SCH (08:04)
[2023-02-13] MEDS: HEPARIN SODIUM,PORCINE 5,000 UNITS/ML VIAL SQ SCH ×2 (08:04→15:39)
[2023-02-13 08:15] VITALS: BP 140/74
[2023-02-13 15:52] VITALS: BP 142/70
[2023-02-13] MEDS ORDERED: PRED-554 PO (16:04)
[2023-02-13 17:51] LABS: GLUCOMETER DEV NAME(LOC) 6S.1B; GLUCOSE,POINT OF CARE 172 MG/DL (70-110)
[2023-02-13 19:36] LABS: GLUCOMETER DEV NAME(LOC) 6N.1; GLUCOSE,POINT OF CARE 190 MG/DL (70-110)
== END 2023-02-13 17:30 | disposition home or self-care (01) | DRG 189 ==
LOC: EMS 22:13 → 5S 02-09 03:30 → 6S 02-11 18:56
PROVIDERS: ADMIT Internal Medicine; ATTEND Internal Medicine
DX: J96.21 Acute and chronic respiratory failure with hypoxia (principal); J44.1 Chronic obstructive pulmonary disease with (acute) exacerbation; E66.01 Morbid (severe) obesity due to excess calories; E11.9 Type 2 diabetes mellitus without complications; I10 Essential (primary) hypertension; K21.9 Gastro-esophageal reflux disease without esophagitis; Z20.822 Contact with and (suspected) exposure to COVID-19; Z99.81 Dependence on supplemental oxygen; Z68.35 Body mass index [BMI] 35.0-35.9, adult; Z87.01 Personal history of pneumonia (recurrent); Z87.891 Personal history of nicotine dependence; Z79.899 Other long term (current) drug therapy
CPT/HCPCS: 71045; 80048; 80053; 81003; 82550; 82962; 83735; 83880; 84145; 84484; 85025; 87804; 93005; 93306; 94640; 99285; G0378; J1644; J2930; J7040; 36415-L1; 36415-TC; J7613

== ENCOUNTER 2024-07-02 18:48 | Emergency (ER) | payer MEDICARE, MEDICAID ==
[~2024-07-02] VITALS: Ht 165.1 cm; Wt 79.5 kg
[~2024-07-02 18:48] MED LIST changes: +IPRA0.2S7 NEB; -IPRNEB NEB; -NAPR-1025 PO; +PRED-554 PO; -SUCR1TAB PO; +SUCR1TAB2 PO
[2024-07-02 20:17] LABS: BASOPHILS % (AUTO) 0.4 % (0.0-2.0); EOSINOPHILS % (AUTO) 2.9 % (1.0-6.0); HEMATOCRIT 41.7 % (41-53); HEMOGLOBIN 13.3 g/dL (13.5-17.5); LYMPHOCYTES # (AUTO) 1.7 K/uL (1.0-4.8); LYMPHOCYTES % (AUTO) 19.8 % (22.0-44.0); MEAN CORPUSCULAR HEMOGLOBIN 26.2 pg (26.0-34.0); MEAN CORPUSCULAR VOLUME 82 fL (80-100); MONOCYTES # (AUTO) 0.8 K/uL (0.1-1.0); MONOCYTES % (AUTO) 9.5 % (2.0-9.0); NEUTROPHILS # (AUTO) 5.8 K/uL (1.8-7.7); NEUTROPHILS % (AUTO) 67.4 % (40.0-70.0); PLATELET COUNT (AUTO) 299 K/uL (150-450); RED BLOOD CELL COUNT(AUTO) 5.09 MIL/uL (4.50-5.90); RED CELL DISTRIBUTION WIDTH 15.5 % (11.5-14.5); WHITE BLOOD COUNT (AUTO) 8.6 K/uL (4.5-11.0)
[2024-07-02] MEDS: PredniSONE 20 MG TABLET PO ONE (20:35)
[2024-07-02 20:40] LABS: TROPONIN I-HIGH SENSITIVITY Less Than 4 ng/L (<76)
[2024-07-02 20:50] VITALS: PULSE 109; RESP 20; O2SAT 95
[2024-07-02] MEDS: ALBUTEROL SULFATE 2.5 MG/0.5 ML NEB SOLUTION NEB ONE (20:50)
[2024-07-02] MEDS: IPRATROPIUM BROMIDE 0.5 MG/2.5 ML NEB SOLUTION NEB ONE (20:50)
[2024-07-02 21:05] VITALS: PULSE 105; RESP 20; O2SAT 99
[2024-07-02 21:18] LABS: CALCIUM, TOTAL 8.8 mg/dL (8.8-10.5); CREATININE 1.44 mg/dL (0.60-1.30); POTASSIUM 3.5 mmol/L (3.5-5.1)
[2024-07-02] MEDS ORDERED: AZIT250T9 PO (22:12)
[2024-07-02] MEDS ORDERED: PRED-554 PO (22:12)
[2024-07-02 22:37] VITALS: BP 141/74; PULSE 111; RESP 20; TEMP 98.3
== END 2024-07-02 23:05 | disposition home or self-care (01) ==
LOC: EMS 18:48
DX: J44.9 Chronic obstructive pulmonary disease, unspecified (principal); E11.9 Type 2 diabetes mellitus without complications; I10 Essential (primary) hypertension; Z87.891 Personal history of nicotine dependence; Z98.890 Other specified postprocedural states
CPT/HCPCS: 99285; 71045; 80048; 83880; 84484; 85025; 36415; 94640; 93005; J7512; J7613